=== PATIENT | female | born 2000 | race Caucasian/White ===

== ENCOUNTER → 2021-06-27 13:54 | Outpatient (CLI) | payer OTHER, SELFPAY ==
--- NOTE | ~2021-06-27 | US_ITS ---
EXAMINATION: US pelvic complete DATE: 06/27/2021 14:19 INDICATION: Low back pain. Abnormal uterine bleeding. Comparison:No prior studies for comparison. TECHNIQUE: Multiple transabdominal sonographic images of the pelvis performed. FINDINGS: The uterus measures 6.6 x 3.1 x 5.1 cm. There is an IUD in the endometrium. The right ovary measures 2.4 x 1.4 x 1.7 cm and the left ovary measures 1.8 x 2.5 x 2.7 cm. There ar e small follicles in each ovary. Normal doppler signal in both ovaries. There is no free fluid in the pelvis. There are no abnormal masses seen on either side. IMPRESSION: 1. Unremarkable pelvic ultrasound. IUD present within the IUD. Reviewed, dictated and finalized at location A.
== END ==
PROVIDERS: Visit Provider Nurse Practitioner
DX: R10.12 Left upper quadrant pain (principal); N93.9 Abnormal uterine and vaginal bleeding, unspecified; Z97.5 Presence of (intrauterine) contraceptive device
CPT/HCPCS: 76856